=== PATIENT | female | born 1995 | race Caucasian/White ===

== ENCOUNTER 2019-06-27 19:28 | Inpatient (IN) | payer MEDICAID ==
[~2019-06-27] VITALS: Ht 165.1 cm; Wt 107.0 kg
[~2019-06-27 19:28] MED LIST: NOCURR
[2019-06-27] MEDS ORDERED: ZOLPIDEM TARTRATE 10 MG TABLET PO PRN (20:30)
[2019-06-27] MEDS ORDERED: INFLUENZA VIRUS VACCINE QVS 2019-20 (3YR+)/PF 60 MCG/0.5 ML SYRINGE IM ONE (20:30)
[2019-06-27] MEDS ORDERED: CARI1.5C PO (20:47)
[2019-06-27 21:30] VITALS: BP 128/68
[2019-06-28 06:05] VITALS: BP 131/76
[2019-06-28 08:22] VITALS: BP 132/78
[2019-06-28] MEDS ORDERED: MAG HYDROX/AL HYDROX/SIMETH ES 30 ML SUSPENSION UDCUP PO PRN (10:00)
[2019-06-28] MEDS ORDERED: ACETAMINOPHEN 325 MG TABLET PO PRN (10:00)
[2019-06-28] MEDS ORDERED: BENZOCAINE/MENTHOL LOZENGE MM PRN (10:00)
[2019-06-28] MEDS ORDERED: CloNIDine HCL 0.1 MG TABLET PO PRN (10:00)
[2019-06-28] MEDS ORDERED: IBUPROFEN 600 MG TABLET PO PRN (10:00)
[2019-06-28] MEDS ORDERED: ONDANSETRON HCL 4 MG TABLET PO PRN (10:00)
[2019-06-28] MEDS ORDERED: LOPERAMIDE HCL 2 MG CAPSULE PO PRN (10:00)
[2019-06-28] MEDS ORDERED: BACITRACIN 28.4 GM OINTMENT TP PRN (10:00)
[2019-06-28] MEDS ORDERED: ALBUTEROL SULFATE HFA 90 MCG/PUFF 8 GM INHALER IH PRN (10:00)
[2019-06-28] MEDS ORDERED: MAGNESIUM HYDROXIDE SUSPENSION 30 ML UDCUP PO PRN (10:00)
[2019-06-28] MEDS ORDERED: PETROLATUM,WHITE 28 GM JELLY TP PRN (10:00)
[2019-06-28 16:10] VITALS: BP 131/77
[2019-06-29 07:03] VITALS: BP 133/79
[2019-06-29 08:19] VITALS: BP 111/83
[2019-06-29] MEDS: OMEPRAZOLE 20 MG CAPSULE PO SCH (09:00)
[2019-06-29] MEDS: DOCUSATE SODIUM 100 MG CAPSULE PO SCH (09:00)
[2019-06-29 09:28] LABS: HEMATOCRIT 40.7 % (36-46); HEMOGLOBIN 13.5 g/dL (12.0-16.0); RED BLOOD CELL COUNT(AUTO) 4.73 MIL/uL (4.00-5.20)
[2019-06-29 09:29] LABS: BASOPHILS % (AUTO) 0.6 % (0.0-2.0); EOSINOPHILS % (AUTO) 3.6 % (1.0-6.0); LYMPHOCYTES # (AUTO) 1.9 K/uL (1.0-4.8); LYMPHOCYTES % (AUTO) 30.7 % (22.0-44.0); MEAN CORPUSCULAR HEMOGLOBIN 28.5 pg (26.0-34.0); MEAN CORPUSCULAR HGB CONC 33.1 G/dL (31.0-37.0); MEAN CORPUSCULAR VOLUME 86 fL (80-100); MONOCYTES # (AUTO) 0.4 K/uL (0.1-1.0); NEUTROPHILS # (AUTO) 3.7 K/uL (1.8-7.7); NEUTROPHILS % (AUTO) 58.1 % (40.0-70.0); PLATELET COUNT (AUTO) 237 K/uL (150-450); RED CELL DISTRIBUTION WIDTH 13.4 % (11.5-14.5)
[2019-06-29 09:46] LABS: HEMOGLOBIN A1C 5.3 % (4.5-6.2)
[2019-06-29 10:44] LABS: ALANINE AMINOTRANSFERASE 78 U/L (12-78); ALBUMIN 3.7 g/dL (3.4-5.0); ALKALINE PHOSPHATASE 96 U/L (46-116); ANION GAP 13 mmol/L (8-16); ASPARTATE AMINOTRANSFERASE 45 U/L (15-37); BILIRUBIN,TOTAL 0.4 mg/dL (0.1-1.0); CALCIUM, TOTAL 9.3 mg/dL (8.8-10.5); CARBON DIOXIDE 22 mmol/L (22-29); CHLORIDE 105 mmol/L (98-107); CHOL/HDL RATIO 4.2 (3.9-5.7); CHOLESTEROL 173 mg/dL (131-200); CREATININE 0.65 mg/dL (0.60-1.30); FREE T4 (FREE THYROXINE) 1.03 ng/dL (0.76-1.46); GLOMERULAR FILTR. RATE CALC > 60 mL/min (>60); GLUCOSE,RANDOM 106 mg/dL (70-110); HDL CHOLESTEROL 41 mg/dL (40-60); LDL CHOL (CALC.) 112 mg/dL (0-130); SODIUM SERUM 140 mmol/L (136-145); TOTAL PROTEIN, SERUM 7.5 g/dL (6.4-8.2); TRIGLYCERIDES 101 mg/dL (15-150); UREA NITROGEN, BLOOD 10 mg/dL (7-18)
[2019-06-29 16:36] VITALS: BP 138/82
[2019-06-30 06:21] VITALS: BP 139/94
[2019-06-30] MEDS: DOCUSATE SODIUM 100 MG CAPSULE PO SCH (08:05)
[2019-06-30] MEDS: OMEPRAZOLE 20 MG CAPSULE PO SCH (08:05)
[2019-06-30 08:26] VITALS: BP 139/81
[2019-06-30 16:57] VITALS: BP 133/79
== END 2019-06-30 17:05 | disposition home or self-care (01) | DRG 754 ==
LOC: B3A 20:23
PROVIDERS: ADMIT Psychiatry & Neurology Psychiatry; ATTEND Psychiatry & Neurology Psychiatry
DX: F32.9 Major depressive disorder, single episode, unspecified (principal); F22 Delusional disorders; F41.9 Anxiety disorder, unspecified; G47.00 Insomnia, unspecified; K59.00 Constipation, unspecified
CPT/HCPCS: 83036; 84436; 84439